=== PATIENT | male | born 1985 | race Caucasian/White ===

== ENCOUNTER 2016-08-10 11:23 | Emergency (ER) | payer BC ==
[2016-08-10] MEDS ORDERED: NORMAL SALINE 500 ML IV ONE (11:27)
[2016-08-10] MEDS ORDERED: LIDOCAINE 2% VISCOUS SOLN 20 ML UDCUP PO ONE (11:45)
[2016-08-10] MEDS ORDERED: METOCLOPRAMIDE HCL ORAL SOLN 10 MG/10 ML UDCUP PO ONE (11:45)
[2016-08-10] MEDS ORDERED: MAG HYDROX/AL HYDROX/SIMETH SUSP 30 ML UDCUP PO ONE (11:45)
[2016-08-10] MEDS ORDERED: METOCLOPRAMIDE HCL INJ/PF 10 MG/2 ML SDV IV ONE (11:46)
[2016-08-10] MEDS ORDERED: ONDANSETRON HCL INJ/PF 4 MG/2 ML SDV IV ONE (11:46)
[2016-08-10] MEDS ORDERED: HYDROMORPHONE HCL INJ/PF 2 MG/ML AMPULE IV ONE (11:46)
[2016-08-10 12:32] LABS: ABSOLUTE EOSINOPHILS # (AUTO) 0.1 10^3/uL (0.0-0.6); ABSOLUTE LYMPHOCYTES (AUTO) 0.9 10^3/uL (0.5-4.7); ABSOLUTE MONOCYTES (AUTO) 0.7 10^3/uL (0.1-1.4); ABSOLUTE NEUT (AUTO) 9.2 10^3/uL (1.7-8.2); BASOPHILS % (AUTO) 0.3 % (0-2); HEMATOCRIT 44.4 % (37.9-51.0); HEMOGLOBIN 14.9 g/dL (13.5-17.0); HGB HCT DIFFERENCE 0.3; LYMPHOCYTES % (AUTO) 8.4 % (13-45); MEAN CORPUSCULAR HEMOGLOBIN 30.9 pg (27.0-33.4); MEAN CORPUSCULAR HGB CONC 33.5 g/dL (32.0-36.0); MEAN CORPUSCULAR VOLUME 92 fl (80-97); MONOCYTES % (AUTO) 6.5 % (3-13); RED BLOOD COUNT 4.81 10^6/uL (4.35-5.55); RED CELL DISTRIBUTION WIDTH 12.5 % (11.5-14.0); SEGMENTED NEUTROPHILS % (AUTO) 83.8 % (42-78)
[2016-08-10 12:37] LABS: ALANINE AMINOTRANSFERASE 59 U/L (21-72); ALBUMIN 4.6 g/dL (3.5-5.0); ALKALINE PHOSPHATASE 88 U/L (38-126); ANION GAP 10 (5-19); ASPARTATE AMINO TRANSFERASE 29 U/L (17-59); BILIRUBIN,TOTAL 1.9 mg/dL (0.2-1.3); BLOOD UREA NITROGEN 16 mg/dL (7-20); CALCIUM 9.5 mg/dL (8.4-10.2); CARBON DIOXIDE 26 mmol/L (22-30); CHLORIDE 106 mmol/L (98-107); CREATININE RESULT 1.05 mg/dL (0.52-1.25); GLUCOSE 94 mg/dL (75-110); LIPASE 87.2 U/L (23-300); POTASSIUM 4.3 mmol/L (3.6-5.0); SODIUM 142.3 mmol/L (137-145); TOTAL PROTEIN 7.1 g/dL (6.3-8.2)
--- NOTE | 2016-08-10 13:13 | ER Document Report ---
[id number] PAIN Mode of Arrival: Medic Information source: Patient Notes: 30-year-old male history of gastric ulcer as well as cholecystectomy presents with complaints of sudden abdominal pain in the epigastric right upper quadrant. Patient admits to severe pain denies any diarrhea patient vomited multiple times prior to arrival. Patient used to be on omeprazole TRAVEL OUTSIDE OF THE [place] IN LAST 30 DAYS: No - HPI Onset: Just prior to arrival Onset/Duration: Sudden Quality of pain: Sharp Severity: Moderate Pain Level: 3 Associated symptoms: Nausea, Vomiting Exacerbated by: Denies Relieved by: Denies Similar symptoms previously: Yes Recently seen / treated by doctor: No - Related Data Allergies/Adverse Reactions: latex Allergy (Verified 08/10/16 11:49) vancomycin Allergy (Verified 08/10/16 11:49) Home Medications: Current Home Medications Cyclobenzaprine HCl [Flexeril 10 mg Tablet] 10 mg PO DAILY PRN 08/10/16 [History ] Tramadol HCl 50 mg PO DAILY PRN 08/10/16 [History] Past Medical History - Social History Smoking Status: Never Smoker Cigarette use (# per day): No Chew tobacco use (# tins/day): No Smoking Education Provided: No Frequency of alcohol use: None Drug Abuse: None Family History: Reviewed & Not Pertinent Patient has suicidal ideation: No Patient has homicidal ideation: No Renal/ Medical History: Denies: Hx Peritoneal Dialysis Past Surgical History: Reports: Hx Cholecystectomy - Immunizations Hx Diphtheria, Pertussis, Tetanus Vaccination: No Review of Systems - Review of Systems Notes: REVIEW OF SYSTEMS: CONSTITUTIONAL : Denies fever, chills, or sweats. Denies recent illness. EENT: Denies eye, ear, throat, or mouth pain or symptoms. Denies nasal or sinus congestion or discharge. Denies throat, tongue, or mouth swelling or difficulty swallowing. CARDIOVASCULAR: Denies chest pain. Denies palpitations or racing or irregular heart beat. Denies ankle edema. RESPIRATORY: Denies cough, cold, or chest congestion. Denies shortness of breath, difficulty breathing, or wheezing. GASTROINTESTINAL: Admits nausea vomiting abdominal pain GENITOURINARY: Denies difficulty urinating, painful urination, burning, frequency, blood in urine, or discharge. MUSCULOSKELETAL: Denies back or neck pain or stiffness. Denies joint pain or swelling. SKIN: Denies rash, lesions or sores. HEMATOLOGIC : Denies easy bruising or bleeding. LYMPHATIC: Denies swollen, enlarged glands. NEUROLOGICAL: Denies confusion or altered mental status. Denies passing out or loss of consciousness. Denies dizziness or lightheadedness. Denies headache. Denies weakness or paralysis or loss of use of either side. Denies problems with gait or speech. Denies sensory loss, numbness, or tingling. Denies seizures. PSYCHIATRIC: Denies anxiety or stress. Denies depression, suicidal ideation, or homicidal ideation. ALL OTHER SYSTEMS REVIEWED AND NEGATIVE. Dictation was performed using [employer] voice recognition software PHYSICAL EXAMINATION: GENERAL: Initially quite ill appearing pale diaphoretic HEAD: Atraumatic, normocephalic. EYES: Pupils equal round extraocular movements intact, conjunctiva are normal. ENT: Nares patent NECK: Normal range of motion LUNGS: No respiratory distress Musculoskeletal: Normal range of motion abdominal exam notes tenderness in the right upper quadrant with mild guarding NEUROLOGICAL: Normal speech, normal gait. PSYCH: Normal mood, normal affect. SKIN: Warm, Dry, normal turgor, no rashes or lesions noted. Physical Exam - Vital signs Vitals: Temp Pulse Resp Pulse Ox 99.0 F 83 17 98 08/10/16 14:41 08/10/16 14:41 08/10/16 14:41 08/10/16 14:41 Course - Re-evaluation Re-evalutation: 08/10/16 13:13 pt resting comfortably, u/s notes no acute abnormality 08/10/16 15:31 Reevaluation patient notes significant improvement in symptoms, patient will be discharged home with precautions for the abdominal pain. I believe he may have had a gastric ulceration that is not perforated at this time however given return precautions. 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 Also, there is no evidence or peritonitis, sepsis, or toxicity. The patient and I have discussed the diagnosis and risks, and we agree with discharging home with close follow-up with the understanding that symptoms and presentations can change. We also discussed returning to the Emergency Department immediately if new or worsening symptoms occur. We have discussed the symptoms which are most concerning (e.g., bloody stool, fever, changing or worsening pain, intractable vomiting - standard verbal up date) that necessitate immediate return. - Vital Signs Vital signs: Temp Pulse Resp BP Pulse Ox 99.0 F 83 17 98 08/10/16 14:41 08/10/16 14:41 08/10/16 14:41 08/10/16 14:41 - Laboratory Result Diagrams: 08/10/16 12:10 08/10/16 12:10 Laboratory results interpreted by me: 08/10/16 08/10/16 08/10/16 12:10 12:10 13:05 WBC 11.0 H Seg Neutrophils % 83.8 H Lymphocytes % 8.4 L Absolute Neutrophils 9.2 H Total Bilirubin 1.9 H Urine Protein 100 H - Diagnostic Test Radiology reviewed: Image reviewed, Reports reviewed Discharge - Discharge Clinical Impression: Nausea & vomiting Qualifiers: Vomiting type: unspecified Vomiting Intractability: non-intractable Qualified Code(s): R11.2 - Nausea with vomiting, unspecified Abdominal pain Qualifiers: Abdominal location: epigastric Qualified Code(s): R10.13 - Epigastric pain Condition: Stable Disposition: HOME, SELF-CARE Instructions: Abdominal Pain ([facility]) Prescriptions: Famotidine [Pepcid 20 mg Tablet] 20 mg PO DAILY #30 tablet Hydrocodone/Acetaminophen [[place] 5-325 mg Tablet] 1 tab PO Q6 #10 tablet Omeprazole 20 mg PO DAILY #30 tablet. Promethazine HCl [Phenergan 25 mg Tablet] 1 - 2 tab PO Q6H PRN #15 tablet PRN Reason: Referrals: FELICITAS SULLIVAN MD [ACTIVE STAFF] - Follow up in 3-5 days
[2016-08-10 13:25] LABS: APPEARANCE,URINE CLEAR; BILIRUBIN,URINE NEGATIVE (NEGATIVE); GLUCOSE, URINE NEGATIVE (NEGATIVE); KETONES,URINE NEGATIVE (NEGATIVE); LEUKOCYTE ESTERASE,URINE NEGATIVE (NEGATIVE); NITRITE,URINE NEGATIVE (NEGATIVE); PROTEIN,URINE 100 mg/dL (NEGATIVE); URINE SPECIFIC GRAVITY 1.013; UROBILINOGEN,URINE NEGATIVE mg/dL (<2.0)
== END 2016-08-10 14:30 | disposition home or self-care (01) ==
LOC: ER 11:23
DX: R10.13 Epigastric pain (principal); R10.11 Right upper quadrant pain; R10.811 Right upper quadrant abdominal tenderness; R11.2 Nausea with vomiting, unspecified; R23.1 Pallor; R61 Generalized hyperhidrosis; E11.9 Type 2 diabetes mellitus without complications; Z90.49 Acquired absence of other specified parts of digestive tract; Z87.11 Personal history of peptic ulcer disease; Z91.040 Latex allergy status; Z88.1 Allergy status to other antibiotic agents
CPT/HCPCS: 99284; 96374; 96375; 36415; 83690; 85025; 80053; 81001; 87804; 76705; J3490; J2765; J1170; J2405

== ENCOUNTER → 2016-12-08 | Outpatient (CLI) | payer BC | LOC: HHS 09:58 | DX: Z12.83 Encounter for screening for malignant neoplasm of skin (principal) ==